=== PATIENT | male | born 1980 | race American Indian/Alaskan Native ===

== ENCOUNTER 2016-08-20 13:39 | Inpatient (IN) | payer OTHER ==
[2016-08-20 15:31] LABS: Basophils % (Auto) 0.4 % (0.0-1.8); Hematocrit 42.2 % (35.5-45.6); Hemoglobin 13.7 gm/dl (11.8-15.2); Mean Corpuscular HGB Conc 33 % (32-34); Mean Corpuscular Hemoglobin 30 pg (28-32); Mean Corpuscular Volume 93 fl (84-94); Platelet Count 190 K/mm3 (140-440); Red Blood Count 4.55 M/mm3 (3.65-5.03); Red Cell Distribution Width 13.5 % (13.2-15.2); White Blood Count 12.2 K/mm3 (4.5-11.0)
[2016-08-20 15:33] LABS: Anion Gap 17 mmol/L; Blood Urea Nitrogen 14 mg/dL (9-20); Calcium 8.8 mg/dL (8.4-10.2); Carbon Dioxide 28 mmol/L (22-30); Chloride 100.7 mmol/L (98-107); Glucose 75 mg/dL (75-100); Potassium 4.1 mmol/L (3.6-5.0); Sodium 142 mmol/L (137-145)
[2016-08-20] MEDS ORDERED: TORADOL IV ONE (20:39)
[2016-08-20] MEDS ORDERED: CLEOCIN 600 MG/50 mL 600 MG/50 ML BAG IV ONE (20:39)
[2016-08-20] MEDS ORDERED: DILAUDID IV ONE (20:39)
[2016-08-20] MEDS ORDERED: NACL 0.9% 1000 ML 1,000 ML IV ONE (20:39)
--- NOTE | 2016-08-20 21:18 | Emergency Department Report ---
ED Lower Extremity HPI - General Chief Complaint: Extremity Injury, Lower Stated Complaint: SPIDER BITE LT FOOT Time Seen by Provider: 08/20/16 20:28 Source: patient Mode of arrival: Ambulatory Limitations: No Limitations - History of Present Illness Initial Comments: 35-year-old male with no significant past medical history presents to the hospital complaining of left foot pain and swelling. Symptoms started on August 16 after experiencing a spider bite. Patient states it was a brown spider that he was able to kill. Expresses concern that it might have been a brown recluse spider. Patient developed worsening pain and swelling by the next day he was seen and evaluated at [facility]. Pain is constant, throbbing and aching, rated 7/10 intensity and worse to palpation. Patient has swelling extending up to his distal left leg. Patient received IV antibiotics at [facility] and was discharged and then presented the next day due to continued symptoms. Patient received another dose IV antibiotics and was discharged with clindamycin and Tylenol No. 3. Patient took the first dose of his antibiotics yesterday and presents to the ED here due to worsening pain and swelling. Patient also experiencing subjective fevers, body aches, and chills. Patient states tetanus shot is up to date. - Related Data Home Medications Medication Instructions Recorded Confirmed Last Taken Acetaminophen/Codeine [Tylenol 1 tab PO Q6H PRN 08/20/16 08/20/16 08/20/16 /Codeine # 3 tab] Clindamycin [Clindamycin CAP] 300 mg PO Q8H 08/20/16 08/20/16 08/20/16 Allergies Allergy/AdvReac Type Severity Reaction Status Date / Time No Known Allergies Allergy Unverified 08/20/16 14:53 ED Review of Systems ROS: Stated complaint: SPIDER BITE LT FOOT Other details as noted in HPI Comment: All other systems reviewed and negative Other: Constitutional: No fevers chills Eyes: No eye pain visual changes ENT: No ear pain or throat pain Neck: Denies pain Respiratory: Denies cough wheezing shortness of breath Cardiovascular: Denies chest pain, palpitations, syncope GI: Denies abdominal pain, nausea, vomiting, diarrhea : Denies dysuria Musculoskeletal: As per HPI Skin: As per HPI Neurologic: Denies headache, numbness, weakness Psychiatric: Denies suicidal ideation, hallucinations ED Past Medical Hx - Past Medical History Additional medical history: hernia - Surgical History Additional Surgical History: hernia repair - Social History Smoking Status: Current Every Day Smoker Substance Use Type: Alcohol, Marijuana - Medications Home Medications: Home Medications Medication Instructions Recorded Confirmed Last Taken Type Acetaminophen/Codeine [Tylenol 1 tab PO Q6H PRN 08/20/16 08/20/16 08/20/16 History /Codeine # 3 tab] Clindamycin [Clindamycin CAP] 300 mg PO Q8H 08/20/16 08/20/16 08/20/16 History ED Physical Exam - General Limitations: No Limitations - Other Other exam information: General: No limitations, patient is alert in no acute distress Head exam: Atraumatic, normocephalic Eyes exam: Normal appearance ENT: Moist mucous membrane, normal oropharynx Neck exam: Normal inspection, full range of motion, no meningismus nontender Respiratory exam: Clear to auscultation bilateral, no wheezes, rales, crackles Cardiovascular: Normal rate and rhythm, normal heart sounds Abdomen: Soft, nondistended, and nontender, with normal bowel sounds, no rebound, or guarding Extremity: Full range of motion, see extremity exam Back: Normal Inspection, full range of motion, no tenderness Neurologic: Alert, oriented x3, cranial nerves intact, no motor or sensory deficit Psychiatric: normal affect, normal mood Skin: Left foot diffuse swelling with lateral posterior foot erythema and warmth. Swelling extends the distal left leg. Tenderness to palpation. Small pustular at the base of the fourth toe. ED Course Vital Signs 08/20/16 08/20/16 08/20/16 14:53 15:36 20:18 Temperature 98.9 F 97.8 F Pulse Rate 81 62 88 Respiratory 18 18 18 Rate Blood Pressure 122/86 Blood Pressure 116/71 [Left] Blood Pressure 106/71 [Right] O2 Sat by Pulse 100 100 99 Oximetry 08/20/16 21:20 Temperature 99.1 F Pulse Rate Respiratory Rate Blood Pressure Blood Pressure [Left] Blood Pressure [Right] O2 Sat by Pulse Oximetry - Reevaluation(s) Reevaluation #1: 08/20/16 21:30 Clindamycin, Dilaudid, Zofran, Toradol, and normal saline ordered ED Lower Extremity MDM - Lab Data Result diagrams: 08/20/16 15:03 08/20/16 15:03 Lab Results 08/20/16 08/20/16 Range/Units 15:03 15:03 WBC 12.2 H (4.5-11.0) K/mm3 RBC 4.55 (3.65-5.03) M/mm3 Hgb 13.7 (11.8-15.2) gm/dl Hct 42.2 (35.5-45.6) % MCV 93 (84-94) fl MCH 30 (28-32) pg MCHC 33 (32-34) % RDW 13.5 (13.2-15.2) % Plt Count 190 (140-440) K/mm3 Lymph % (Auto) 19.2 (13.4-35.0) % [place] % (Auto) 10.1 H (0.0-7.3) % Eos % (Auto) 1.0 (0.0-4.3) % Baso % (Auto) 0.4 (0.0-1.8) % Lymph # 2.3 (1.2-5.4) K/mm3 [place] # 1.2 H (0.0-0.8) K/mm3 Eos # 0.1 (0.0-0.4) K/mm3 Baso # 0.0 (0.0-0.1) K/mm3 Seg Neutrophils % 69.3 (40.0-70.0) % Seg Neutrophils # 8.4 H (1.8-7.7) K/mm3 Sodium 142 (137-145) mmol/L Potassium 4.1 (3.6-5.0) mmol/L Chloride 100.7 (98-107) mmol/L Carbon Dioxide 28 (22-30) mmol/L Anion Gap 17 mmol/L BUN 14 (9-20) mg/dL Creatinine 1.0 (0.8-1.5) mg/dL Estimated GFR > 60 ml/min BUN/Creatinine Ratio 14.00 % Glucose 75 (75-100) mg/dL Calcium 8.8 (8.4-10.2) mg/dL - Medical Decision Making Plan to admit patient to hospital for IV antibiotics given a set outpatient treatment. Patient has had 3 ER visits since symptom onset 4 days ago with gradual worsening of symptoms therefore patient will be admitted. - Differential Diagnosis cellulitis, abscess Critical Care Time: No Critical care attestation.: If time is entered above; I have spent that time in minutes in the direct care of this critically ill patient, excluding procedure time. ED Disposition Clinical Impression: Cellulitis of left foot Disposition: OP ADMIT IP TO THIS HOSP Is pt being admited?: Yes Condition: Stable Time of Disposition: 21:18 (Dr Wren/hosp)
[2016-08-20] MEDS ORDERED: ZOFRAN IV ONE (21:31)
[2016-08-20] MEDS ORDERED: ZOFRAN IV PRN (21:54)
[2016-08-20] MEDS ORDERED: DULCOLAX PR PRN (21:54)
[2016-08-20] MEDS ORDERED: MILK OF MAGNESIA PO PRN (21:54)
[2016-08-20] MEDS ORDERED: TYLENOL PO PRN (21:54)
[2016-08-20] MEDS ORDERED: VANCOMYCIN/NS 1 GM/250 ML 1 GM/250 ML BAG IV SCH (22:00)
[2016-08-20] MEDS: PERCOCET 5/325 PO PRN (23:22)
--- NOTE | 2016-08-20 23:30 | History and Physical Report ---
History of Present Illness Date of examination: 08/20/16 Date of admission: 08/20/16 21:54 History of present illness: 35-year-old man with no medical problem comes emergency room complaining of swelling and pain of the foot. Patient stated he was bitten by her own recluse spider on the , since then he has developed redness, swelling and pain. He was seen at [facility] and was discharge on antibiotic. If symptoms progress and T1 to [facility] initially on 08/19/16 and was given antibiotic. He was told to return to the emergency room if he had worsening of his symptoms which occurred any return and was discharged with clindamycin. He stated despite being on clindamycin he has progression of his symptoms Patient denies chest pain, palpitation, shortness of breath, cough, abdominal pain, hematochezia, dysuria, frequency, focal weakness, dysarthria, fever chills , polydipsia polyuria, hot or cold intolerance, easy bruisability, or rash or bleeding from mucosal membrane, rhinorrhea, epistaxis, earache, tinnitus, blurry vision, eye discharge, anxiety, depression. Other review of systems negative PAST SURGICAL HISTORY: Hernia repair SOCIAL HISTORY: Smoke a pack a week, alcohol and marijuana use FAMILY HISTORY: Hypertension Medications and Allergies Allergies Allergy/AdvReac Type Severity Reaction Status Date / Time No Known Allergies Allergy Verified 08/20/16 22:00 Home Medications Medication Instructions Recorded Confirmed Last Taken Type Acetaminophen/Codeine [Tylenol 1 tab PO Q6H PRN 08/20/16 08/20/16 08/20/16 History /Codeine # 3 tab] Clindamycin [Clindamycin CAP] 300 mg PO Q8H 08/20/16 08/20/16 08/20/16 History Active Meds: Active Medications Acetaminophen (Tylenol) 650 mg PO Q4H PRN PRN Reason: Pain MILD(1-3)/Fever >100.5/MAGANA Bisacodyl (Dulcolax) 10 mg SD QDAY PRN PRN Reason: Constipation unrelieved by MOM Enoxaparin Sodium (Lovenox) 40 mg SUB-Q DAILY GWYN Vancomycin HCl (Vancomycin/Ns 1 Gm/250 Ml) 1 gm in 250 mls @ 167.007 mls/hr IV Q12H GWYN PRN Reason: Protocol Last Admin: 08/20/16 22:42 Dose: 167.007 mls/hr Magnesium Hydroxide (Milk Of Magnesia) 30 ml PO Q4H PRN PRN Reason: Constipation Ondansetron HCl (Zofran) 4 mg IV Q8H PRN PRN Reason: N/V unrelieved by Reglan Oxycodone/Acetaminophen (Percocet 5/325) 1 tab PO Q4H PRN PRN Reason: Pain, Moderate (4-6) Last Admin: 08/20/16 23:22 Dose: 1 tab Exam - Physical Exam Narrative exam: Gen. appearance: Patient lying in bed, no apparent distress HEENT: Normocephalic, atraumatic, pupils equally round and reactive to light, extraocular movement intact, and no sclericterus,. No JVD or thyromegaly or nodule,neck supple, no carotid bruit ,mucous membranes moist, no exudate or erythema Heart: S1, S2, regular rate and rhythm Lungs: Clear to auscultation bilaterally, breathing comfortable Abdomen: Positive bowel sounds, nontender, nondistended, no organomegaly Extremity: Bite hanna on the left fourth toe, swelling, erythema over the anterior aspect and lateral aspect of the foot, tender to touch, swollen, purulent discharge , No cyanosis, clubbing Skin: No rash, nodules, warm, dry Neuro: Oriented 3, cranial nerves II-12 intact, speech is fluent, motor and sensory intact - Constitutional Vitals: Temp Pulse Resp BP Pulse Ox 99.1 F 76 18 107/68 97 08/20/16 21:20 08/20/16 22:30 08/20/16 22:30 08/20/16 22:30 08/20/16 22:30 Results - Labs CBC & Chem 7: 08/20/16 15:03 08/20/16 15:03 - Imaging and Cardiology EKG: image reviewed Assessment and Plan Cellulitis of the left foot Admit to medicine Start IV vancomycin, obtain wound culture, blood culture Start Percocet, DVT prophylaxis
[2016-08-21 06:14] LABS: Basophils % (Auto) 0.6 % (0.0-1.8); Eosinophils % (Auto) 2.1 % (0.0-4.3); Hematocrit 35.9 % (35.5-45.6); Hemoglobin 12.3 gm/dl (11.8-15.2); Mean Corpuscular HGB Conc 34 % (32-34); Mean Corpuscular Hemoglobin 31 pg (28-32); Mean Corpuscular Volume 91 fl (84-94); Platelet Count 168 K/mm3 (140-440); Red Blood Count 3.94 M/mm3 (3.65-5.03); Red Cell Distribution Width 13.2 % (13.2-15.2); White Blood Count 8.6 K/mm3 (4.5-11.0)
[2016-08-21 06:18] LABS: Anion Gap 8 mmol/L; BUN/Creatinine Ratio 22.22; Blood Urea Nitrogen 20 mg/dL (9-20); Calcium 8.5 mg/dL (8.4-10.2); Carbon Dioxide 33 mmol/L (22-30); Chloride 101.5 mmol/L (98-107); Glucose 92 mg/dL (75-100); Potassium 4.1 mmol/L (3.6-5.0); Sodium 138 mmol/L (137-145)
[2016-08-21] MEDS: PERCOCET 5/325 PO PRN ×2 (07:37→11:32)
[2016-08-21] MEDS: VANCOMYCIN/NS 1 GM/250 ML 1 GM/250 ML BAG IV SCH ×3 (09:39→18:33)
[2016-08-21] MEDS: LOVENOX SUB-Q SCH (09:39)
[2016-08-21] MEDS ORDERED: VANCOMYCIN PHARMACY TO DOSE IV SCH (10:00)
--- NOTE | 2016-08-21 12:14 | Progress Note ---
Assessment and Plan Assessment and plan: Patient is 35-year-old man with history of tobacco dependency presents to the emergency department at [facility] with left foot pain and swelling. He initially presented to [facility] emergency department, receive antibiotics and sent home on a course of antibiotics. His symptoms came worsen; therefore, he came [facility] emergency department, where he was admitted. Patient states he felt a bite and killed the spider but he did not save it. He thinks it was a brown recluse spider -Left foot cellulitis failed outpatient therapy: Treat with IV antibiotics and IV fluids -Tobacco dependency: Counseled to stop done -Dehydration, improved -Leukocytosis without evidence of Sirs: Continue treatment cellulitis History Interval history: Patient seen and examined. Follow up on left foot pain and swelling. Overnight uneventful. No cp, sob, n/v or severe headaches. Imaging, old records, testing, labs, nursing notes reviewed. Hospitalist Physical - Physical exam Narrative exam: GEN: WDWN, NAD, AWAKE, ALERT, ORIENTATED x 3 HEENT: NCAT, PERRL, EOMI, OP CLEAR NECK: SUPPLE, NO THYROMEGALY, NO JVD, NO LAD CVS: RRR, NORMAL S1S2 LUNGS/CHEST: CTA B, NORMAL CHEST EXPANSION B, GOOD AIR ENTRY B ABD: SOFT, NTND, GBS, NO REBOUND OR GUARDING EXT/SKIN: Significant left foot edema with redness, erythema tenderness, round circular bite area near the top of the foot under the webspace of the third and fourth toe MSK: FROM X 4 EXTREMITIES NEURO: CN 2-12 GROSSLY INTACT, NO FOCAL DEFICITS PSY: CALM - Constitutional Vitals: Temp Pulse Resp BP Pulse Ox 98.1 F 80 20 116/74 99 08/21/16 07:00 08/21/16 07:00 08/21/16 07:00 08/21/16 07:00 08/21/16 09:09 Results - Labs CBC & Chem 7: 08/21/16 05:46 08/21/16 05:46 Labs: Laboratory Last Values WBC 8.6 K/mm3 (4.5-11.0) 08/21/16 05:46 RBC 3.94 M/mm3 (3.65-5.03) 08/21/16 05:46 Hgb 12.3 gm/dl (11.8-15.2) 08/21/16 05:46 Hct 35.9 % (35.5-45.6) D 08/21/16 05:46 MCV 91 fl (84-94) 08/21/16 05:46 MCH 31 pg (28-32) 08/21/16 05:46 MCHC 34 % (32-34) 08/21/16 05:46 RDW 13.2 % (13.2-15.2) 08/21/16 05:46 Plt Count 168 K/mm3 (140-440) 08/21/16 05:46 Lymph % (Auto) 22.4 % (13.4-35.0) 08/21/16 05:46 [place] % (Auto) 10.6 % (0.0-7.3) H 08/21/16 05:46 Eos % (Auto) 2.1 % (0.0-4.3) 08/21/16 05:46 Baso % (Auto) 0.6 % (0.0-1.8) 08/21/16 05:46 Lymph # 1.9 K/mm3 (1.2-5.4) 08/21/16 05:46 [place] # 0.9 K/mm3 (0.0-0.8) H 08/21/16 05:46 Eos # 0.2 K/mm3 (0.0-0.4) 08/21/16 05:46 Baso # 0.1 K/mm3 (0.0-0.1) 08/21/16 05:46 Seg Neutrophils % 64.3 % (40.0-70.0) 08/21/16 05:46 Seg Neutrophils # 5.5 K/mm3 (1.8-7.7) 08/21/16 05:46 Sodium 138 mmol/L (137-145) 08/21/16 05:46 Potassium 4.1 mmol/L (3.6-5.0) 08/21/16 05:46 Chloride 101.5 mmol/L (98-107) 08/21/16 05:46 Carbon Dioxide 33 mmol/L (22-30) H 08/21/16 05:46 Anion Gap 8 mmol/L 08/21/16 05:46 BUN 20 mg/dL (9-20) 08/21/16 05:46 Creatinine 0.9 mg/dL (0.8-1.5) 08/21/16 05:46 Estimated GFR > 60 ml/min 08/21/16 05:46 BUN/Creatinine Ratio 22.22 % 08/21/16 05:46 Glucose 92 mg/dL (75-100) 08/21/16 05:46 Calcium 8.5 mg/dL (8.4-10.2) 08/21/16 05:46
[2016-08-21] MEDS: MORPHINE IV PRN ×2 (15:08→20:05)
[2016-08-22] MEDS: VANCOMYCIN/NS 1 GM/250 ML 1 GM/250 ML BAG IV SCH ×3 (04:15→18:39)
[2016-08-22] MEDS: MORPHINE IV PRN ×3 (09:18→19:35)
[2016-08-22] MEDS: LOVENOX SUB-Q SCH (09:18)
--- NOTE | 2016-08-22 10:39 | Progress Note ---
Assessment and Plan Assessment and plan: Patient is 35-year-old man with history of tobacco dependency presents to the emergency department at [facility] with left foot pain and swelling. He initially presented to [facility] emergency department, receive antibiotics and sent home on a course of antibiotics. His symptoms came worsen; therefore, he came [facility] emergency department, where he was admitted. Patient states he felt a bite and killed the spider but he did not save it. He thinks it was a brown recluse spider -Left foot cellulitis failed outpatient therapy: Treat with IV antibiotics and IV fluids -Tobacco dependency: Counseled to stop done -Dehydration, improved -Leukocytosis without evidence of Sirs: Continue treatment of cellulitis -DVT prophylaxis: Subcutaneous Lovenox 08/22/2016: wound Culture pending, continue IV vancomycin, start MRSA isolation History Interval history: Patient seen and examined. Follow up on left foot pain and swelling. Overnight uneventful. No cp, sob, n/v or severe headaches. Imaging, old records, testing, labs, nursing notes reviewed. Hospitalist Physical - Physical exam Narrative exam: GEN: WDWN, NAD, AWAKE, ALERT, ORIENTATED x 3 HEENT: NCAT, PERRL, EOMI, OP CLEAR NECK: SUPPLE, NO THYROMEGALY, NO JVD, NO LAD CVS: RRR, NORMAL S1S2 LUNGS/CHEST: CTA B, NORMAL CHEST EXPANSION B, GOOD AIR ENTRY B ABD: SOFT, NTND, GBS, NO REBOUND OR GUARDING EXT/SKIN: Significant left foot edema with redness, erythema tenderness==>the abscess has erupted and pus is draining MSK: FROM X 4 EXTREMITIES NEURO: CN 2-12 GROSSLY INTACT, NO FOCAL DEFICITS PSY: CALM - Constitutional Vitals: Temp Pulse Resp BP Pulse Ox 97.9 F 69 20 114/58 100 08/22/16 07:00 08/22/16 07:00 08/22/16 07:00 08/22/16 07:00 08/22/16 07:00 Results - Labs CBC & Chem 7: 08/21/16 05:46 08/21/16 05:46 Labs: Laboratory Last Values WBC 8.6 K/mm3 (4.5-11.0) 08/21/16 05:46 RBC 3.94 M/mm3 (3.65-5.03) 08/21/16 05:46 Hgb 12.3 gm/dl (11.8-15.2) 08/21/16 05:46 Hct 35.9 % (35.5-45.6) D 08/21/16 05:46 MCV 91 fl (84-94) 08/21/16 05:46 MCH 31 pg (28-32) 08/21/16 05:46 MCHC 34 % (32-34) 08/21/16 05:46 RDW 13.2 % (13.2-15.2) 08/21/16 05:46 Plt Count 168 K/mm3 (140-440) 08/21/16 05:46 Lymph % (Auto) 22.4 % (13.4-35.0) 08/21/16 05:46 [place] % (Auto) 10.6 % (0.0-7.3) H 08/21/16 05:46 Eos % (Auto) 2.1 % (0.0-4.3) 08/21/16 05:46 Baso % (Auto) 0.6 % (0.0-1.8) 08/21/16 05:46 Lymph # 1.9 K/mm3 (1.2-5.4) 08/21/16 05:46 [place] # 0.9 K/mm3 (0.0-0.8) H 08/21/16 05:46 Eos # 0.2 K/mm3 (0.0-0.4) 08/21/16 05:46 Baso # 0.1 K/mm3 (0.0-0.1) 08/21/16 05:46 Seg Neutrophils % 64.3 % (40.0-70.0) 08/21/16 05:46 Seg Neutrophils # 5.5 K/mm3 (1.8-7.7) 08/21/16 05:46 Sodium 138 mmol/L (137-145) 08/21/16 05:46 Potassium 4.1 mmol/L (3.6-5.0) 08/21/16 05:46 Chloride 101.5 mmol/L (98-107) 08/21/16 05:46 Carbon Dioxide 33 mmol/L (22-30) H 08/21/16 05:46 Anion Gap 8 mmol/L 08/21/16 05:46 BUN 20 mg/dL (9-20) 08/21/16 05:46 Creatinine 0.9 mg/dL (0.8-1.5) 08/21/16 05:46 Estimated GFR > 60 ml/min 08/21/16 05:46 BUN/Creatinine Ratio 22.22 % 08/21/16 05:46 Glucose 92 mg/dL (75-100) 08/21/16 05:46 Calcium 8.5 mg/dL (8.4-10.2) 08/21/16 05:46
[2016-08-23] MEDS: VANCOMYCIN/NS 1 GM/250 ML 1 GM/250 ML BAG IV SCH ×2 (03:34→11:12)
[2016-08-23] MEDS: MORPHINE IV PRN ×3 (03:40→18:22)
[2016-08-23] MEDS: PERCOCET 5/325 PO PRN ×3 (08:43→22:34)
[2016-08-23] MEDS: LOVENOX SUB-Q SCH (11:11)
--- NOTE | 2016-08-23 12:37 | Progress Note ---
Assessment and Plan Assessment and plan: Patient is 35-year-old man with history of tobacco dependency presents to the emergency department at [facility] with left foot pain and swelling. He initially presented to [facility] emergency department, receive antibiotics and sent home on a course of antibiotics. His symptoms came worsen; therefore, he came [facility] emergency department, where he was admitted. Patient states he felt a bite and killed the spider but he did not save it. He thinks it was a brown recluse spider -Left foot cellulitis with abscess failed outpatient therapy: Treat with IV antibiotics and IV fluids -Tobacco dependency: Counseled to stop done -Dehydration, improved -Leukocytosis without evidence of Sirs: Continue treatment of cellulitis -DVT prophylaxis: Subcutaneous Lovenox 08/22/2016: wound Culture pending, continue IV vancomycin, start MRSA isolation 08/23/16: Wound culture resulted it is MRSA, still quite a bit of pus, wound care recommended surgery evaluation which I placed. Wound culture is back we' ll stop IV vancomycin and start oral Bactrim History Interval history: Patient seen and examined. Follow up on left foot pain and swelling. Overnight uneventful. No cp, sob, n/v or severe headaches. Imaging, old records, testing, labs, nursing notes reviewed. Hospitalist Physical - Physical exam Narrative exam: GEN: WDWN, NAD, AWAKE, ALERT, ORIENTATED x 3 HEENT: NCAT, PERRL, EOMI, OP CLEAR NECK: SUPPLE, NO THYROMEGALY, NO JVD, NO LAD CVS: RRR, NORMAL S1S2 LUNGS/CHEST: CTA B, NORMAL CHEST EXPANSION B, GOOD AIR ENTRY B ABD: SOFT, NTND, GBS, NO REBOUND OR GUARDING EXT/SKIN: Significant left foot edema with redness, erythema tenderness==>the abscess has erupted and pus is draining MSK: FROM X 4 EXTREMITIES NEURO: CN 2-12 GROSSLY INTACT, NO FOCAL DEFICITS PSY: CALM - Constitutional Vitals: Temp Pulse Resp BP Pulse Ox 98.5 F 68 20 110/74 100 08/23/16 08:24 08/23/16 08:24 08/23/16 08:24 08/23/16 08:24 08/23/16 00:00 Results - Labs CBC & Chem 7: 08/21/16 05:46 08/21/16 05:46 Labs: Laboratory Last Values WBC 8.6 K/mm3 (4.5-11.0) 08/21/16 05:46 RBC 3.94 M/mm3 (3.65-5.03) 08/21/16 05:46 Hgb 12.3 gm/dl (11.8-15.2) 08/21/16 05:46 Hct 35.9 % (35.5-45.6) D 08/21/16 05:46 MCV 91 fl (84-94) 08/21/16 05:46 MCH 31 pg (28-32) 08/21/16 05:46 MCHC 34 % (32-34) 08/21/16 05:46 RDW 13.2 % (13.2-15.2) 08/21/16 05:46 Plt Count 168 K/mm3 (140-440) 08/21/16 05:46 Lymph % (Auto) 22.4 % (13.4-35.0) 08/21/16 05:46 [place] % (Auto) 10.6 % (0.0-7.3) H 08/21/16 05:46 Eos % (Auto) 2.1 % (0.0-4.3) 08/21/16 05:46 Baso % (Auto) 0.6 % (0.0-1.8) 08/21/16 05:46 Lymph # 1.9 K/mm3 (1.2-5.4) 08/21/16 05:46 [place] # 0.9 K/mm3 (0.0-0.8) H 08/21/16 05:46 Eos # 0.2 K/mm3 (0.0-0.4) 08/21/16 05:46 Baso # 0.1 K/mm3 (0.0-0.1) 08/21/16 05:46 Seg Neutrophils % 64.3 % (40.0-70.0) 08/21/16 05:46 Seg Neutrophils # 5.5 K/mm3 (1.8-7.7) 08/21/16 05:46 Sodium 138 mmol/L (137-145) 08/21/16 05:46 Potassium 4.1 mmol/L (3.6-5.0) 08/21/16 05:46 Chloride 101.5 mmol/L (98-107) 08/21/16 05:46 Carbon Dioxide 33 mmol/L (22-30) H 08/21/16 05:46 Anion Gap 8 mmol/L 08/21/16 05:46 BUN 20 mg/dL (9-20) 08/21/16 05:46 Creatinine 0.9 mg/dL (0.8-1.5) 08/21/16 05:46 Estimated GFR > 60 ml/min 08/21/16 05:46 BUN/Creatinine Ratio 22.22 % 08/21/16 05:46 Glucose 92 mg/dL (75-100) 08/21/16 05:46 Calcium 8.5 mg/dL (8.4-10.2) 08/21/16 05:46 Vancomycin Trough 15.5 ug/mL (5.0-20.0) 08/23/16 10:24
[2016-08-23] MEDS: BACTRIM DS PO SCH ×2 (14:38→22:34)
--- NOTE | 2016-08-23 16:52 | Admit Criteria Form ---
Admission Criteria Documentation: WOUND COMPLICATIONS Clinical Indications for Inpatient Care (Place 'X' for any and all applicable criteria): Ongoing inpatient care may be indicated for wound complications with ANY ONE of the following (1) (15): [ X]I. Infection with ANY ONE of the following(32)(33): [ ]a) Temperature greater than 38.5 C (101.3 F) [ ]b) Evidence of tissue necrosis [X ]c) Erythema diameter expanding around wound despite treatment [ ]d) Mental status changes [ ]e) Dehydration [ ]f) Bacteremia [ ]g) Hemodynamic instability [ ]h) Suspected necrotizing fasciitis [ ]i) Rapidly spreading lesions [ ]j) High-risk location (eg, perineum, sternum, orbit) [ ]k) High-risk coexisting clinical condition as indicated by ANY ONE of the following: [ ]i) Poorly controlled diabetes [ ]ii) Cirrhosis [ ]iii) Renal failure [ ]iv) Neutropenia [ ] v) Asplenia [ ]vi) Immunosuppression (eg, AIDS, chronic corticosteroid use) [ ]viii) Other high-risk medical comorbidities [ ] II. Dehiscence requiring frequent monitoring or immediate treatment [ ] III. Hematoma with ANY ONE of the following: [ ]a) Hemodynamic instability or acute anemia due to rapid development of hematoma [ ]b) Neck hematoma causing airway compression [ ]c) Retroperitoneal hematoma [ ]d) Uncontrolled coagulopathy [ ]IV. Seroma with evidence of secondary infection and requirement for IV antibiotics [D](31) [ ]V. Pain that cannot be managed at lower level of care Extended stay beyond goal length of stay for primary condition may be needed until ALL of the following are present(1)(33)(34): [ ]a) Afebrile or fever resolving [ ]b) Hemodynamic stability [ ]c) Pain resolving [ ]d) Wound closed, continuity adequately restored, or wound manageable at lower level of care [ ]e) No drain needed or drain care manageable at lower level of care [ ]f) Wound hematoma or seroma resolving [ ]g) Antibiotics not needed or regimen manageable at lower level of care(38) [ ]h) Dressing care manageable at lower level of care [ ]i) Coagulopathy absent, resolved, or treatable at lower level of care [ ]j) Medical comorbidities resolved or treatable at lower level of care The original [facility] [employer] content created by [employer] has been revised. The portions of the content which have been revised are identified through the use of italic text or in bold, and Nurys Amezcua has neither reviewed nor approved the modified material. All other unmodified content is copyright [facility]. Please see references footnoted in the original [facility] edition 2016 Admission Criteria Met: Yes
[2016-08-24] MEDS: PERCOCET 5/325 PO PRN ×5 (02:36→21:38)
[2016-08-24 08:47] LABS: Hematocrit 42.7 % (35.5-45.6); Mean Corpuscular HGB Conc 33 % (32-34); Mean Corpuscular Hemoglobin 30 pg (28-32); Mean Corpuscular Volume 92 fl (84-94); Platelet Count 237 K/mm3 (140-440); Red Blood Count 4.62 M/mm3 (3.65-5.03); Red Cell Distribution Width 13.3 % (13.2-15.2)
[2016-08-24 09:04] LABS: Anion Gap 16 mmol/L; BUN/Creatinine Ratio 11.81; Blood Urea Nitrogen 13 mg/dL (9-20); Calcium 9.4 mg/dL (8.4-10.2); Carbon Dioxide 30 mmol/L (22-30); Chloride 98.4 mmol/L (98-107); Glucose 90 mg/dL (75-100); Potassium 4.3 mmol/L (3.6-5.0); Sodium 140 mmol/L (137-145)
[2016-08-24] MEDS: LOVENOX SUB-Q SCH (10:07)
[2016-08-24] MEDS: BACTRIM DS PO SCH ×2 (10:07→21:38)
--- NOTE | 2016-08-24 13:46 | Progress Note ---
Assessment and Plan Assessment and plan: Left foot cellulitis with abscess failed outpatient therapy: -Wound culture showed MRSA sensitive to vancomycin - IR consulted for incision and drainage of the abscess Tobacco dependency: - Counseled for cessation of alcohol Dehydration - Resolved with IV fluids Leukocytosis without evidence of Sirs: - Resolved DVT prophylaxis: Subcutaneous Lovenox Disposition - We'll discharge him after incision and drainage of the abscess History Interval history: Patient was seen and evaluated this morning, Patient doesn't have any new complaints. Hospitalist Physical - Physical exam Narrative exam: Not in cardiopulmonary distress. The patient appeared well nourished and normally developed. Vital signs as documented. Head exam is unremarkable. No scleral icterus . Neck is without jugular venous distension, thyromegaly, or carotid bruits. Lungs are clear to auscultation. Cardiac exam reveals regular rate and Rhythm. First and second heart sounds normal. No murmurs, rubs or gallops. Abdominal exam reveals normal bowel sounds, no masses, no organomegaly and no aortic enlargement. Extremities swellling and discharge from the dorsum of the left foot behind the 2nd and 3rd toe. OCEAN IMPORT REPRESENTATIVE: Alert and oriented 3. No focal weakness. - Constitutional Vitals: Temp Pulse Resp BP Pulse Ox 98.5 F 61 15 109/56 99 08/24/16 07:05 08/24/16 07:05 08/24/16 07:05 08/24/16 07:05 08/24/16 07:05 Results - Labs CBC & Chem 7: 08/24/16 08:01 08/24/16 08:01 Labs: Laboratory Last Values WBC 7.0 K/mm3 (4.5-11.0) 08/24/16 08:01 RBC 4.62 M/mm3 (3.65-5.03) 08/24/16 08:01 Hgb 14.0 gm/dl (11.8-15.2) 08/24/16 08:01 Hct 42.7 % (35.5-45.6) 08/24/16 08:01 MCV 92 fl (84-94) 08/24/16 08:01 MCH 30 pg (28-32) 08/24/16 08:01 MCHC 33 % (32-34) 08/24/16 08:01 RDW 13.3 % (13.2-15.2) 08/24/16 08:01 Plt Count 237 K/mm3 (140-440) 08/24/16 08:01 Lymph % (Auto) 22.4 % (13.4-35.0) 08/21/16 05:46 Towner % (Auto) 10.6 % (0.0-7.3) H 08/21/16 05:46 Eos % (Auto) 2.1 % (0.0-4.3) 08/21/16 05:46 Baso % (Auto) 0.6 % (0.0-1.8) 08/21/16 05:46 Lymph # 1.9 K/mm3 (1.2-5.4) 08/21/16 05:46 Towner # 0.9 K/mm3 (0.0-0.8) H 08/21/16 05:46 Eos # 0.2 K/mm3 (0.0-0.4) 08/21/16 05:46 Baso # 0.1 K/mm3 (0.0-0.1) 08/21/16 05:46 Seg Neutrophils % 64.3 % (40.0-70.0) 08/21/16 05:46 Seg Neutrophils # 5.5 K/mm3 (1.8-7.7) 08/21/16 05:46 Sodium 140 mmol/L (137-145) 08/24/16 08:01 Potassium 4.3 mmol/L (3.6-5.0) 08/24/16 08:01 Chloride 98.4 mmol/L (98-107) 08/24/16 08:01 Carbon Dioxide 30 mmol/L (22-30) 08/24/16 08:01 Anion Gap 16 mmol/L 08/24/16 08:01 BUN 13 mg/dL (9-20) 08/24/16 08:01 Creatinine 1.1 mg/dL (0.8-1.5) 08/24/16 08:01 Estimated GFR > 60 ml/min 08/24/16 08:01 BUN/Creatinine Ratio 11.81 % 08/24/16 08:01 Glucose 90 mg/dL (75-100) 08/24/16 08:01 Calcium 9.4 mg/dL (8.4-10.2) 08/24/16 08:01 Vancomycin Trough 15.5 ug/mL (5.0-20.0) 08/23/16 10:24
[2016-08-24] MEDS ORDERED: XYLOCAINE 1% 20 mL ONE (15:16)
[2016-08-24] MEDS ORDERED: XYLOCAINE 1% 20 mL INFILTRATI ONE (15:45)
--- NOTE | 2016-08-24 15:57 | Consultation ---
History of Present Illness - [facility] Consult date: 08/24/16 Consult reason: joint pain History of present illness: 35-year-old male who complains of left forefoot pain and swelling after being bitten by a spider on 08/15/2016. Patient was admitted for cellulitis and received IV antibiotics for 72 hours currently patient still complains of pain with some drainage noted along the dorsal surface of the fourth toe Medications and Allergies Allergies Allergy/AdvReac Type Severity Reaction Status Date / Time No Known Allergies Allergy Verified 08/20/16 22:00 Home Medications Medication Instructions Recorded Confirmed Last Taken Type Acetaminophen/Codeine [Tylenol 1 tab PO Q6H PRN 08/20/16 08/20/16 08/20/16 History /Codeine # 3 tab] Clindamycin [Clindamycin CAP] 300 mg PO Q8H 08/20/16 08/20/16 08/20/16 History Active Meds: Active Medications Acetaminophen (Tylenol) 650 mg PO Q4H PRN PRN Reason: Pain MILD(1-3)/Fever >100.5/MAGANA Bisacodyl (Dulcolax) 10 mg AR QDAY PRN PRN Reason: Constipation unrelieved by MOM Enoxaparin Sodium (Lovenox) 40 mg SUB-Q DAILY [facility] Last Admin: 08/24/16 10:07 Dose: 40 mg Magnesium Hydroxide (Milk Of Magnesia) 30 ml PO Q4H PRN PRN Reason: Constipation Morphine Sulfate (Morphine) 2 mg IV Q4H PRN PRN Reason: Pain , Severe (7-10) Last Admin: 08/23/16 18:22 Dose: 2 mg Ondansetron HCl (Zofran) 4 mg IV Q8H PRN PRN Reason: N/V unrelieved by Reglan Oxycodone/Acetaminophen (Percocet 5/325) 1 tab PO Q4H PRN PRN Reason: Pain, Moderate (4-6) Last Admin: 08/24/16 12:17 Dose: 1 tab Trimethoprim/Sulfamethoxazole (Bactrim Ds) 1 each PO BID [facility] Last Admin: 08/24/16 10:07 Dose: 1 each Physical Examination - Physical exam Narrative exam: Significant orthopedic exam includes the left lower extremity at the foot region he was noted to have some swelling in the third webspace with purulent material being expressed the plantar surface was without any evidence of deep infection Eyes: PERRL ENT: Positive: hearing intact, clear oral mucosa Respiratory effort: normal Respiratory: bilateral: CTA Rhythm: regular Heart Sounds: Positive: S1 & S2 General gastrointestinal: Positive: soft, non-tender, non-distended, normal bowel sounds Integumentary: clear, warm, dry Neurologic: Positive: CNII-XII intact, moves all extremities, gait normal. Negative: focal deficits Assessment and Plan Status post spider bite with abscess formation Plan/recommendations- the skin over lying the third web space was anesthetized using half percent lidocaine this is followed by an incision and drainage with iodoform packing. Continue with antibiotic therapy for the time being patient may be discharged with a return appointment in the office 2 days for packing removal
--- NOTE | 2016-08-24 16:00 | Procedure Note ---
Date of procedure: 08/24/16 Pre-op diagnosis: abscess left forefoot Post-op diagnosis: same Procedure: Under sterile technique patient was given local anesthesia overlying the abscess formation following this a 11 blade was used to incise the skin overlying this area this was then probed with a mosquito forceps following this the wound was packed open with iodoform gauze packing dressings were applied the patient tolerated procedure there were no complications Anesthesia: local Surgeon: SHELBI GILLETTE Estimated blood loss: minimal Condition: stable Disposition: no change
--- NOTE | 2016-08-24 17:52 | Event Note ---
Date: 08/24/16 IR consulted for I&D of foot abscess. This not a procedure performed by the IR service. Therefore pt not seen. Pt was eval'd by Ortho earlier today. He performed the procedure with recommendations for the pt to f/u as an outpt in 2 days.
[2016-08-25] MEDS: PERCOCET 5/325 PO PRN ×3 (02:27→11:31)
--- NOTE | 2016-08-25 07:35 | Discharge Summary ---
Providers - Providers Date of Admission: 08/20/16 21:54 Date of discharge: 08/25/16 Attending physician: AURE PAYTON MD 08/21/16 22:56 Consult to Wound/ET Nurse [CONS] Routine Reason For Exam: wound eval 08/23/16 12:32 Consult to Physician [CONS] Routine Consulting Provider: REENA MELO Reason For Exam: left foot abscess Place consult to:: Nyasia SIMEON Notified:: office Phone number called:: Was contact made?: Yes If yes, spoke with:: dutch Time called:: 16:18 08/24/16 12:21 Consult to Physician [CONS] Routine Consulting Provider: AL SAMS Reason For Exam: abscess lt foot Place consult to:: Dr Sams Notified:: yes 08/24/16 13:39 Consult to Physician [CONS] Routine Consulting Provider: SHELBI GILLETTE Reason For Exam: left leg cellulitis/Abscess Place consult to:: DR. GILLETTE Notified:: OFFICE Phone number called:: [phone] Was contact made?: Yes If yes, spoke with:: MARGO Time called:: 13:47 Comment:: CAREN NOTIFIED 08/24/16 13:40 Consult to Physician [CONS] Routine Consulting Provider: MARTIN COBURN Reason For Exam: Left foot abscess Place consult to:: CAMILA/AARON AHN Notified:: KOLE Phone number called:: IN HOUSE Was contact made?: Yes If yes, spoke with:: KOLE Time called:: 13:43 Comment:: Incison and drainage of the abscess Primary care physician: KNITTING MACHINE OPERATOR AUTOMATIC Hospitalization Reason for admission: cellulitis and abscess of the left lower extremity Condition: Stable Disposition: DC-01 TO HOME OR SELFCARE Time spent for discharge: 31 minutes - Discharge Diagnoses (1) Cellulitis of left foot Status: Acute (2) Abscess of left foot Status: Acute Core Measure Documentation - Palliative Care Palliative Care/ Comfort Measures: Not Applicable - Core Measures Any of the following diagnoses?: none Exam - Physical Exam Narrative exam: Not in cardiopulmonary distress. The patient appeared well nourished and normally developed. Vital signs as documented. Head exam is unremarkable. No scleral icterus . Neck is without jugular venous distension, thyromegaly, or carotid bruits. Lungs are clear to auscultation. Cardiac exam reveals regular rate and Rhythm. First and second heart sounds normal. No murmurs, rubs or gallops. Abdominal exam reveals normal bowel sounds, no masses, no organomegaly and no aortic enlargement. Extremities swellling and discharge from the dorsum of the left foot behind the 2nd and 3rd toe. REGIONAL PROGRAM MANAGER: Alert and oriented 3. No focal weakness. - Constitutional Vitals: Temp Pulse Resp BP Pulse Ox 98.2 F 68 18 117/57 99 08/24/16 23:00 08/24/16 23:00 08/25/16 02:27 08/24/16 23:00 08/24/16 23:00 Plan Activity: no restrictions Weight Bearing Status: Weight Bear as Tolerated Diet: regular Wound: per wound nurse instructions Follow up with: PRIMARY CARE, [Primary Care Provider] - 3-5 Days Prescriptions: Acetaminophen/Codeine [Tylenol /Codeine # 3 tab] 1 tab PO Q6H PRN #12 tablet PRN Reason: pain Sulfamethoxazole/Trimethoprim [Bactrim DS TAB] 1 each PO BID #20 tablet
--- NOTE | 2016-08-25 08:44 | Consultation ---
History of Present Illness - Reason for Consult Consult date: 08/25/16 Left Foot Abscess Requesting physician: AURE PAYTON - History of Present Illness Patient is a 35-year-old man with an abscess of his left foot believed by him to be secondary to an insect bite. He visited other hospitals for management prior to seeking evaluation here and was given other oral antibiotics, including Clindamycin. He underwent a surgical I&D of the collection yesterday. MRSA had been isolated from the drainage previously and he is on Bactrim for treatment. The MRSA isolate is Clindamycin-resistant. ID consultation is requested for further treatment recommendations. Past History Past Surgical History: hernia repair Social history: smoking, other ((+) marijuana use) Family history: no significant family history Medications and Allergies Allergies Allergy/AdvReac Type Severity Reaction Status Date / Time No Known Allergies Allergy Verified 08/20/16 22:00 Home Medications Medication Instructions Recorded Confirmed Last Taken Type Acetaminophen/Codeine [Tylenol 1 tab PO Q6H PRN #12 tablet 08/25/16 Unknown Rx /Codeine # 3 tab] Sulfamethoxazole/Trimethoprim 1 each PO BID #20 tablet 08/25/16 Unknown Rx [Bactrim DS TAB] Active Meds: Active Medications Acetaminophen (Tylenol) 650 mg PO Q4H PRN PRN Reason: Pain MILD(1-3)/Fever >100.5/MAGANA Bisacodyl (Dulcolax) 10 mg UT QDAY PRN PRN Reason: Constipation unrelieved by MOM Enoxaparin Sodium (Lovenox) 40 mg SUB-Q DAILY [facility] Last Admin: 08/24/16 10:07 Dose: 40 mg Magnesium Hydroxide (Milk Of Magnesia) 30 ml PO Q4H PRN PRN Reason: Constipation Morphine Sulfate (Morphine) 2 mg IV Q4H PRN PRN Reason: Pain , Severe (7-10) Last Admin: 08/23/16 18:22 Dose: 2 mg Ondansetron HCl (Zofran) 4 mg IV Q8H PRN PRN Reason: N/V unrelieved by Reglan Oxycodone/Acetaminophen (Percocet 5/325) 1 tab PO Q4H PRN PRN Reason: Pain, Moderate (4-6) Last Admin: 08/25/16 07:31 Dose: 1 tab Trimethoprim/Sulfamethoxazole (Bactrim Ds) 1 each PO BID [facility] Last Admin: 08/24/16 21:38 Dose: 1 each Review of Systems All systems: negative Constitutional: no fever, no chills, no sweats Cardiovascular: no chest pain, no palpitations Respiratory: no cough, no shortness of breath Gastrointestinal: no nausea, no vomiting, no diarrhea Musculoskeletal: other (left foot pain) Integumentary: no rash, no pruritis Physical Examination - Constitutional Vitals: Vital Signs Temp Pulse Resp BP Pulse Ox 98.0 F 62 18 107/70 100 08/25/16 08:00 08/25/16 08:00 08/25/16 08:00 08/25/16 08:00 08/25/16 08:00 Temperature -Last 24 Hours Temperature 98.0 F Temperature 98.2 F Temperature 98.7 F General appearance: Present: no acute distress, well-nourished - Neck Neck: Present: supple - Respiratory Respiratory effort: normal - Cardiovascular Rhythm: regular Heart Sounds: Present: S1 & S2 - Extremities Extremity abnormal: other (left foot with mild, fading erythema over dorsum and a packed wound at the base of the 4th toe) - Abdominal General gastrointestinal: Present: soft, non-distended - Integumentary Integumentary: Absent: rash - Neurologic Neurologic: moves all extremities Results - Labs CBC & Chem 7: 08/24/16 08:01 08/24/16 08:01 Labs: Microbiology 08/20/16 21:32 Foot - Left Wound Culture - Final Methicillin Resist S. Aureus Assessment and Plan - Patient Problems (1) Abscess of left foot Current Visit: Yes Status: Acute Plan to address problem: 1. Now that collection has been drained, continue Bactrim DS PO BID to complete 10-14 days of post-drainage treatment. 2. Keep area clean with frequent dressing changes. 3. Other wound care recommendations, claus. with packing, per surgeon.
[2016-08-25] MEDS: LOVENOX SUB-Q SCH (10:10)
[2016-08-25] MEDS: BACTRIM DS PO SCH (10:10)
[2016-08-25 16:20] VITALS: BP 121/60
== END 2016-08-25 19:00 | disposition home or self-care (01) | DRG 603 ==
LOC: ED 13:39 → 3A 21:54
PROVIDERS: ADMIT Internal Medicine; ATTEND Internal Medicine
PROC: 0H9NXZZ Drainage of Left Foot Skin, External Approach (ICD-10-PCS; principal; 2016-08-24)
DX: L03.116 Cellulitis of left lower limb (principal); L02.612 Cutaneous abscess of left foot; Z88.1 Allergy status to other antibiotic agents; Z88.5 Allergy status to narcotic agent; Z88.8 Allergy status to other drugs, medicaments and biological substances; Z82.49 Family history of ischemic heart disease and other diseases of the circulatory system; F17.210 Nicotine dependence, cigarettes, uncomplicated; E86.0 Dehydration; W57.XXXA Bitten or stung by nonvenomous insect and other nonvenomous arthropods, initial encounter; F14.90 Cocaine use, unspecified, uncomplicated; Z72.89 Other problems related to lifestyle; D72.829 Elevated white blood cell count, unspecified; Z71.41 Alcohol abuse counseling and surveillance of alcoholic
CPT/HCPCS: 36415; 80048; 80202; 85025; 85027; 87076; 87116; 87186; 96365; 96375; 99285; 99406; J1170; J1650; J1885; J2270; J2405; J3370; J7030

== ENCOUNTER 2021-02-04 19:45 | Emergency (ER) | payer SELFPAY ==
[2021-02-04] MEDS ORDERED: IBUPROFEN 800 MG TAB PO STA (20:26)
[2021-02-04] MEDS ORDERED: ACETAMINOPHEN 500 MG TAB PO STA (20:26)
[2021-02-04] MEDS ORDERED: TETANUS,DIPH,PERTUSS(ACELL) VACCINE 0.5 ML SYRINGE IM ONE (20:27)
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
[2021-02-05] MEDS ORDERED: IBUPROFEN 800 MG TAB PO STA (00:37)
[2021-02-05] MEDS ORDERED: ACETAMINOPHEN 500 MG TAB PO STA (00:37)
[2021-02-05] MEDS ORDERED: TETANUS,DIPH,PERTUSS(ACELL) VACCINE 0.5 ML SYRINGE IM ONE (00:45)
[2021-02-05] MEDS ORDERED: MORPHINE 4 MG/1 ML INJ IM STA (03:57)
[2021-02-05 05:07] VITALS: BP 140/75
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
== END 2021-02-05 04:45 | disposition home or self-care (01) ==
LOC: ED 19:45
DX: S90.31XA Contusion of right foot, initial encounter (principal); S60.511A Abrasion of right hand, initial encounter; Z98.890 Other specified postprocedural states; F17.200 Nicotine dependence, unspecified, uncomplicated; V86.59XA Driver of other special all-terrain or other off-road motor vehicle injured in nontraffic accident, initial encounter; Y93.I9 Activity, other involving external motion; Y92.410 Unspecified street and highway as the place of occurrence of the external cause; Y99.8 Other external cause status
CPT/HCPCS: 73610; 73630; 90471; 90715; 96372; 99283; J2270